=== PATIENT | male | born 1990 ===

== ENCOUNTER 2018-02-08 13:00 | Emergency (ER) | payer OTHER ==
[2018-02-08] MEDS ORDERED: Ibuprofen TAB* 600 MG PO ONE (17:13)
--- NOTE | 2018-02-08 17:13 | ED ---
Headache - HPI Summary HPI Summary: 27-year-old male presents with headache for the past month. He states that he developed headache a couple days after that head injury. States the headache is intermittent. States the headache is located on left side near his eye. Denies any change in vision. He has seen an eye doctor and told everything was fine. He notes occasional dizziness and difficulties concentrating. No photophobia. He admits occasional nausea but denies any vomiting. No loss consciousness with the initial injury. He states he just bumped his head. Denies any family history of migraines. He states has had a headache right now is a 4. He is at [employer]. - History Of Current Complaint Chief Complaint: EDHeadache Stated Complaint: HEADACHE 1 MONTH Time Seen by Provider: 02/08/18 16:33 - Allergies/Home Medications Allergies/Adverse Reactions: Allergies Allergy/AdvReac Type Severity Reaction Status Date / Time No Known Allergies Allergy Verified 02/08/18 13:09 PMH/Surg Hx/FS Hx/Imm Hx Endocrine/Hematology History: Denies: Hx Anticoagulant Therapy Respiratory History: Denies: Hx Asthma Infectious Disease History: No Infectious Disease History: Denies: Traveled Outside the in Last 30 Days - Family History Known Family History: Negative: Seizure Disorder - Social History Alcohol Use: Occasionally Substance Use Type: Reports: None Smoking Status (MU): Never Smoked Tobacco Review of Systems Negative: Fever Negative: Chest Pain Negative: Shortness Of Breath Positive: Headache All Other Systems Reviewed And Are Negative: Yes Physical Exam Triage Information Reviewed: Yes Vital Signs On Initial Exam: Initial Vitals Temp Pulse Resp BP Pulse Ox 98.6 F 84 20 134/95 98 02/08/18 13:05 02/08/18 13:05 02/08/18 13:05 02/08/18 13:05 02/08/18 13:05 Vital Signs Reviewed: Yes Appearance: Positive: Well-Appearing Skin: Positive: Warm, Dry Head/Face: Positive: Normal Head/Face Inspection Eyes: Positive: Normal, EOMI, RENÉ, Conjunctiva Clear ENT: Positive: Normal ENT inspection, Pharynx normal, TMs normal Respiratory/Lung Sounds: Positive: Clear to Auscultation, Breath Sounds Present Cardiovascular: Positive: Normal, RRR Musculoskeletal: Positive: Normal Neurological: Positive: Sensory/Motor Intact, Alert, Oriented to Person Place, Time, CN Intact II-III Psychiatric: Positive: Normal - Antwon Coma Scale Best Eye Response: 4 - Spontaneous Best Motor Response: 6 - Obeys Commands Best Verbal Response: 5 - Oriented Coma Scale Total: 15 Diagnostics - Vital Signs Vital Signs Temp Pulse Resp BP Pulse Ox 02/08/18 15:00 98.1 F 68 16 120/81 100 02/08/18 13:05 98.6 F 84 20 134/95 98 - Laboratory Lab Statement: Any lab studies that have been ordered have been reviewed, and results considered in the medical decision making process. Headache Course/Dx - Course Course Of Treatment: 27-year-old male presents with headache for the past month. He states that he developed headache a couple days after that head injury. States the headache is intermittent. States the headache is located on left side near his eye. Denies any change in vision. He has seen an eye doctor and told everything was fine. He notes occasional dizziness and difficulties concentrating. No photophobia. He admits occasional nausea but denies any vomiting. No loss consciousness with the initial injury. He states he just bumped his head. Denies any family history of migraines. He states has had a headache right now is a 4. He is at [employer]. Normal neuro exam. does not have any warning signs to indicate need for imaging at this time. Discuss could be postconcussive versus migraine type headache. We'll give referral to neurology. Told to start taking ibuprofen. Patient understands agrees plan. - Diagnoses Differential Diagnosis/HQI/PQRI: Migraine, Tension Headache, Other - Postconcussive syndrome Provider Diagnoses: Headache Discharge - Sign-Out/Discharge Documenting (check all that apply): Patient Departure - Discharge Plan Condition: Good Disposition: HOME Patient Education Materials: General Headache (ED) Referrals: Radha Zavala MD [Medical Doctor] - Additional Instructions: Take Tylenol or ibuprofen for pain every 6 hours Follow up with neurology Return to ED if develop any new or worsening symptoms - Billing Disposition and Condition Condition: GOOD Disposition: Home
[2018-02-08 17:36] VITALS: BP 118/76
== END 2018-02-08 17:30 | disposition home or self-care (01) ==
LOC: ED 13:00
DX: R51 Headache (principal); Z87.828 Personal history of other (healed) physical injury and trauma
CPT/HCPCS: 99282